=== PATIENT | male | born 1980 | race Caucasian/White ===

== ENCOUNTER 2016-12-01 13:28 | Emergency (ER) | payer SELFPAY ==
[2016-12-01 13:41] VITALS: BP 106/71
--- NOTE | 2016-12-01 14:11 | ER Document Report ---
ED Oral Problem - General Chief Complaint: Mouth Problem Stated Complaint: MOUTH PAIN TRAVEL OUTSIDE OF THE U.S. IN LAST 30 DAYS: No - HPI Patient complains to provider of: Toothache, Other - Aphthous ulcer Onset: Last week Onset: Gradual Quality of pain: Sharp Associated symptoms: Toothache, Other - Ulcer on the bottom of the tongue Worsened by: Cold Relieved by: Nothing Similar symptoms previously: Yes - Related Data Allergies/Adverse Reactions: No Known Allergies Allergy (Verified 12/01/16 13:38) Past Medical History - General Information source: Patient - Social History Smoking Status: Current Every Day Smoker Cigarette use (# per day): Yes - half pack a day Chew tobacco use (# tins/day): No Smoking Education Provided: Yes - less than 2 minutes Frequency of alcohol use: None Drug Abuse: None 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 Lives with: Friend Family History: CVA, DM, Malignancy Patient has suicidal ideation: No Patient has homicidal ideation: No - Past Medical History Cardiac Medical History: Reports: Hx Hypertension Pulmonary Medical History: Reports: None EENT Medical History: Reports: None Neurological Medical History: Reports: None Endocrine Medical History: Reports: None Renal/ Medical History: Reports: Hx Kidney Stones Malignancy Medical History: Reports None GI Medical History: Reports: None Musculoskeltal Medical History: Reports None Skin Medical History: Reports None Psychiatric Medical History: Reports: None Traumatic Medical History: Reports: None Infectious Medical History: Reports: None Past Surgical History: Reports: Hx Umbilical Hernia - Immunizations Hx Diphtheria, Pertussis, Tetanus Vaccination: Yes - 5 yrs Review of Systems - Review of Systems Constitutional: No symptoms reported EENT: Mouth swelling, Dental problem Cardiovascular: No symptoms reported Respiratory: No symptoms reported Gastrointestinal: No symptoms reported Genitourinary: Other - Days he has a kidney stone that is being treated Male Genitourinary: No symptoms reported Musculoskeletal: No symptoms reported Skin: No symptoms reported Hematologic/Lymphatic: No symptoms reported Neurological/Psychological: No symptoms reported Physical Exam - Vital signs Vitals: Temp Pulse Resp BP Pulse Ox 98.3 F 108 H 16 106/71 100 12/01/16 13:40 12/01/16 13:40 12/01/16 13:40 12/01/16 13:40 12/01/16 13:40 Interpretation: Normal - General General appearance: Appears well, Alert - HEENT Head: Normocephalic, Atraumatic Eyes: Normal Pupils: PERRL Ears: Normal External canal: Normal Tympanic membrane: Normal Sinus: Normal Nasal: Normal Mouth/Lips: Caries, Lesions - Abscess ulcer to the bottom of his tongue Mucous membranes: Normal Teeth diagram: 1 - Cavities 2 - Cavities 3 - Cavities 4 - Cavities 5 - aphthous ulcer under his tongue Pharynx: Normal Neck: Normal - Respiratory Respiratory status: No respiratory distress Chest status: Nontender Breath sounds: Normal Chest palpation: Normal - Cardiovascular Rhythm: Regular Heart sounds: Normal auscultation Murmur: No - Abdominal Inspection: Normal Distension: No distension Bowel sounds: Normal Tenderness: Nontender Organomegaly: No organomegaly - Back Back: Normal, Nontender - Extremities General upper extremity: Normal inspection, Nontender, Normal color, Normal ROM , Normal temperature General lower extremity: Normal inspection, Nontender, Normal color, Normal ROM , Normal temperature, Normal weight bearing. No: Kimi's sign - Neurological Neuro grossly intact: Yes Cognition: Normal Orientation: AAOx4 [place] Coma Scale Eye Opening: Spontaneous Ruth Coma Scale Verbal: Oriented [place] Coma Scale Motor: Obeys Commands [place] Coma Scale Total: 15 Speech: Normal Motor strength normal: LUE, RUE, LLE, RLE Sensory: Normal - Psychological Associated symptoms: Normal affect, Normal mood - Skin Skin Temperature: Warm Skin Moisture: Dry Skin Color: Normal Course - Vital Signs Vital signs: Temp Pulse Resp BP Pulse Ox 98.3 F 108 H 16 106/71 100 12/01/16 13:40 12/01/16 13:40 12/01/16 13:40 12/01/16 13:40 12/01/16 13:40 Discharge - Discharge Clinical Impression: Pain due to dental caries, Aphthous ulcer Condition: Stable Disposition: HOME, SELF-CARE Instructions: Dentist Additional Instructions: TOOTHACHE: Your pain is due to dental decay. The tooth must be repaired in order for you to feel better. You will, therefore, be referred to a dentist. We do not have dentists on the staff at [facility]. Severe swelling or drainage around a tooth usually means a dental abscess. This also requires evaluation and treatment by the dentist, but antibiotics may be prescribed while awaiting dental treatment. You should be rechecked immediately if you develop major swelling of the face, increasing pain, a lump in the jaw or gums, headache, difficulty swallowing, or fever. ORAL NARCOTIC MEDICATION: You have been given a prescription for pain control. This medication is a narcotic. It's best taken with food, as nausea can result if taken on an empty stomach. Don't operate machinery or drive within six hours of taking this medication. Do not combine this medicine with alcohol, or with any medication which can cause sedation (such as cold tablets or sleeping pills) unless you get permission from the physician. Narcotics tend to cause constipation. If possible, drink plenty of fluids and eat a diet high in fiber and fruits. Please be aware that prescription narcotics also have the potential for abuse. People become addicted to these medications because of the general sense of wellbeing that they induce. This feeling along with a significant reduction in tension, anxiety, and aggression provides a stimulating seductive quality to these drugs. Once your pain is under control, we encourage you to discard your unused narcotics. PENICILLIN V K: You have been given a prescription for Penicillin VK. Your physician has determined that this is the best antibiotic for your condition. Pen VK can be taken with meals, however more of the antibiotic gets into the bloodstream if it's taken on an empty stomach. Penicillin usually has no side effects. However, allergy to penicillins is common. If you have had an allergic reaction to any drug of the penicillin family, you should never take any other penicillin. Notify your doctor at once if you develop hives, itching, swelling, faintness, or shortness of breath. Mouth ulcers should be treated with the Magic mouthwash that I have prescribed you if this does not work then you need to go to the dentist for help with this mouth ulcer. FOLLOW-UP CARE: You have been referred for follow-up care to the dentists listed below. Call the dentists office for an appointment as you were instructed or within the next two days. If you experience worsening or a significant change in your symptoms, notify the physician immediately or return to the Emergency Department at any time for re-evaluation. [id number] [place] [address] [facility] [address] [facility] [address] [facility] [address] [email or web address] [address] [place] [address] Saturday- 8:00am to 5:00 pm Will see patients from other [facility]. Charges based on income and family size and accepts Medicare, Medicaid, and Insurances Will pull molars [facility] [id number] Hours of Operation 8:00 am - 4:30 pm weekdays The following dental offices accept Medicaid: [facility] [place] Dr. Monte Dr. Salas Dr. [place] Dr. Burk Al Garcia, [place], and Valentina oral surgery Dr. Churchill ([place]) Dr. Martinez ([place]) [facility] Drs. Dueñas ([place]) Dr. Simon ([place]) [facility] Dr. Crandall ([place]) Drs. Bar and ([place]) Medicaid Care Line Prescriptions: Hydrocodone/Acetaminophen [[place] 5-325 mg Tablet] 1 tab PO Q6HP PRN #10 tablet PRN Reason: Nystatin/Dexameth/Diphen [Magic Mouthwash ([facility] Formula) Susp] 5 ml PO QID #120 ml Penicillin V Potassium [Penicillin Vk 500 mg Tablet] 500 mg PO QID #28 tablet Forms: Return to Work, Smoking Cessation Education
== END 2016-12-01 14:25 | disposition home or self-care (01) ==
LOC: ER 13:28
DX: K02.9 Dental caries, unspecified (principal); K12.0 Recurrent oral aphthae; K08.89 Other specified disorders of teeth and supporting structures; N20.0 Calculus of kidney; I10 Essential (primary) hypertension; F17.210 Nicotine dependence, cigarettes, uncomplicated; Z71.6 Tobacco abuse counseling
CPT/HCPCS: 99282

== ENCOUNTER 2017-02-11 22:51 | Emergency (ER) | payer SELFPAY ==
[2017-02-12] MEDS ORDERED: BUPIVACAINE HCL 0.75% INJ/PF (7.5 MG/1 ML) 10 ML SDV INJ ONE (00:35)
[2017-02-12] MEDS ORDERED: PENICILLIN V POTASSIUM 500 MG TABLET PO ONE (00:35)
--- NOTE | 2017-02-12 00:37 | ER Document Report ---
HPI - HPI Patient complains to provider of: tooth pain Pain Level: 5 Context: Patient is a 36-year-old male who comes emergency department for chief complaint of dental pain, he states he broke a left back lower molar about 1 week ago, he states that 2 days ago it started to become very painful. He states he thinks he might of had something draining out of it but he is not sure. He denies a foul taste in his mouth, denies sore throat, denies neck pain , denies fever. Patient takes no daily medications. - CONSTITUTIONAL Constitutional: DENIES: Fever, Chills - EENT EENT: DENIES: Sore Throat, Ear Pain, Nasal Drainage-Clear, Nasal Drainage- Purulent, Congestion, Eye problems - NEURO Neurology: DENIES: Headache, Weakness, Vision blurred, Dizzinesss / Vertigo - CARDIOVASCULAR Cardiovascular: DENIES: Chest pain - RESPIRATORY Respiratory: DENIES: Trouble Breathing, Coughing - GASTROINTESTINAL Gastrointestinal: DENIES: Abdominal Pain, Nausea, Patient vomiting, Diarrhea, Constipation, Black / Bloody Stools - URINARY Urinary: DENIES: Dysuria, Urgency, Frequency - REPRODUCTIVE Reproductive: DENIES: :, Postmenopausal, Abnormal bleeding / discharge - MUSCULOSKELETAL Musculoskeletal: DENIES: Extremity pain, Back Pain, Neck Pain, Swelling - DERM Skin Color: Normal Skin Problems: None - NURSING COMMENTS Comment: Pt. reports having a broken tooth on the left lower jaw for 1 week, doesn't have dental insurance. Pt. last took ibuprofen on Saturday, pt. has used oragel also without relief. pt. reports having some drainage from the tooth on Saturday. Past Medical History - General Information source: Patient - Social History Smoking Status: Current Every Day Smoker Cigarette use (# per day): Yes - 1 ppd Chew tobacco use (# tins/day): No Frequency of alcohol use: None Drug Abuse: None Lives with: Family Family History: CVA, DM, Malignancy - Past Medical History Cardiac Medical History: Reports: Hx Hypertension Renal/ Medical History: Reports: Hx Kidney Stones. Denies: Hx Peritoneal Dialysis Past Surgical History: Reports: Hx Herniorrhaphy, Hx Umbilical Hernia - Immunizations Hx Diphtheria, Pertussis, Tetanus Vaccination: Yes - 5 yrs Vertical Provider Document - CONSTITUTIONAL General Appearance: WD/WN, Mild Distress - Patient appears to be in pain - INFECTION CONTROL TRAVEL OUTSIDE OF THE [place] IN LAST 30 DAYS: No - HEENT HEENT: Atraumatic, Normocephalic Mouth Diagram: 1 - Fractured tooth with mild surrounding erythema, no drainable abscess - RESPIRATORY Respiratory: Breath Sounds Normal, No Respiratory Distress O2 Sat by Pulse Oximetry: 99 - CARDIOVASCULAR Cardiovascular: Regular Rate, Regular Rhythm - GI/ABDOMEN Gastrointestinal: Abdomen Soft, Abdomen Non-Tender - NEURO Level of Consciousness: Awake, Alert, Appropriate Course - Re-evaluation Re-evalutation: Patient provided with dental block after he requested it, excellent results. Treating with antibiotics, given handout of local dental clinic referrals, discussed return precautions, patient states understanding and agreement. - Vital Signs Vital signs: Temp Pulse Resp BP Pulse Ox 97.7 F 77 16 137/89 H 99 02/11/17 23:30 02/11/17 23:30 02/11/17 23:30 02/11/17 23:30 02/11/17 23:30 Procedures - Additional Procedures Dental block Additional Procedures: Other - Left inferior alveolar dental block performed with 0.75% bupivacaine, 3 mL was injected after aspiration into the shelf posterior to the left posterior molar, excellent anesthesia provided, no significant bleeding, no complications Discharge - Discharge Clinical Impression: Pain, dental Condition: Stable Disposition: HOME, SELF-CARE Additional Instructions: Take the antibiotics as prescribed. Take pain medication if needed. Follow-up with the dental referral list to prevent this from continually happening. Return to emergency department for any concerning worsening symptoms including swelling of the face. Prescriptions: Hydrocodone/Acetaminophen [[place] 5-325 Tablet] 1 - 2 each PO Q4H PRN #12 tablet PRN Reason: Penicillin V Potassium [Penicillin Vk 500 mg Tablet] 500 mg PO BID #20 tablet Forms: Return to Work
[2017-02-12 01:57] VITALS: BP 128/82
== END 2017-02-12 01:56 | disposition home or self-care (01) ==
LOC: ER 22:51
PROC: 3E0T3BZ Introduction of Anesthetic Agent into Peripheral Nerves and Plexi, Percutaneous Approach (ICD-10-PCS; principal; 2017-02-11)
DX: K08.89 Other specified disorders of teeth and supporting structures (principal); F17.210 Nicotine dependence, cigarettes, uncomplicated; I10 Essential (primary) hypertension
CPT/HCPCS: 99282; 64400; J3490

== ENCOUNTER 2017-03-24 20:27 | Emergency (ER) | payer SELFPAY ==
--- NOTE | 2017-03-24 21:29 | ER Document Report ---
ED Oral Problem - General TRAVEL OUTSIDE OF THE [place] IN LAST 30 DAYS: No - General Chief Complaint: Toothache Stated Complaint: TOOTH PAIN Time Seen by Provider: 03/24/17 21:27 Notes: throat sore, same tooth, not taking motrin, patient complains of (SOFIAAMANDA) - Related Data Allergies/Adverse Reactions: No Known Allergies Allergy (Verified 03/24/17 20:48) Past Medical History - Social History Smoking Status: Current Every Day Smoker Chew tobacco use (# tins/day): No Frequency of alcohol use: None Drug Abuse: None Family History: CVA, DM, Malignancy - Past Medical History Cardiac Medical History: Reports: Hx Hypertension Renal/ Medical History: Reports: Hx Kidney Stones. Denies: Hx Peritoneal Dialysis Past Surgical History: Reports: Hx Herniorrhaphy, Hx Umbilical Hernia - Immunizations Hx Diphtheria, Pertussis, Tetanus Vaccination: Yes - 5 yrs Course - Re-evaluation Re-evalutation: 03/24/17 21:44 Patient presents emergency department for the third time in a month and a half with chronic chronic dental caries and chipped tooth. He states that the tooth chipped today however per previous documentation that particular tooth has been chipped before. He is been given 2 doses of pain medications here and cannot get continue to receive any of those until he follows up with a dental physician. Asked him if he is attempting to follow-up with dental physician he did not have any clear train of thought as to who he has sought out to try to help him with his dental care. He has no associated abscess vital signs are stable no intraoral lesions facial swelling difficulty breathing or any other concerns. Give him a dose of Motrin here prescription for ibuprofen to go home with and a list of dental providers in the area and discussed reasons for ED return sooner (MERYL ROSALES) - Vital Signs Vital signs: Temp Pulse Resp BP Pulse Ox 98.2 F 88 20 122/80 99 03/24/17 22:07 03/24/17 22:07 03/24/17 22:07 03/24/17 22:07 03/24/17 22:07 Discharge - Discharge Clinical Impression: chronic dental caries Condition: Stable Disposition: HOME, SELF-CARE Instructions: Penicillin V K ([facility]), [facility]ache ([facility]) Additional Instructions: You have been seen and evaluated in the emergency department with multiple dental caries. And multiple chipped teeth that require dental attention. We do not see where there is any abscess or infection. We are going to start on some antibiotics and have given you a dental sheet for follow-up with the dental physician. In addition to that follow primary care physician for any ongoing chronic related conditions with your teeth and return take Tylenol or Motrin. Return for increasing worsening or new symptoms Prescriptions: Ibuprofen [Motrin 600 Mg Tablet] 600 mg PO TID #12 tablet Penicillin V Potassium [Penicillin Vk 500 mg Tablet] 500 mg PO BID #20 tablet Scribe Attestation: 03/24/17 21:44 (MERYL ROSALES)
[2017-03-24] MEDS ORDERED: IBUPROFEN 600 MG TABLET PO ONE (21:45)
[2017-03-24] MEDS ORDERED: PENICILLIN V POTASSIUM 250 MG TABLET PO ONE (21:57)
[2017-03-24 22:07] VITALS: BP 122/80
== END 2017-03-24 22:09 | disposition home or self-care (01) ==
LOC: ER 20:27
DX: K02.9 Dental caries, unspecified (principal); F17.200 Nicotine dependence, unspecified, uncomplicated; I10 Essential (primary) hypertension; Z87.442 Personal history of urinary calculi
CPT/HCPCS: 99282

== ENCOUNTER 2017-08-14 23:31 | Emergency (ER) | payer SELFPAY ==
[2017-08-14 23:44] VITALS: BP 134/75
[2017-08-15] MEDS ORDERED: HYDROCODONE/ACETAMINOPHEN 5-325 MG 6 TAB/DSPK PO PRN (00:08)
[2017-08-15] MEDS ORDERED: CLINDAMYCIN HCL 150 MG CAPSULE PO ONE (00:08)
--- NOTE | 2017-08-15 00:10 | ER Document Report ---
ED General - General Chief Complaint: Toothache Stated Complaint: TOOTHACHE Time Seen by Provider: 08/14/17 23:56 Mode of Arrival: Ambulatory Information source: Patient Notes: Patient is a 37-year-old male comes emergency room with 2 complaints. His primary complaint is he has a right lower molar abscessed tooth that is causing pain and started approximately 3 days ago and is gotten worse. He also complains of having a fever has been bringing up chills that also started about the same day. 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 Patient also states that his temp is been up to 99 9 here in the hospital he has not taken anything for it. He states that his boss is getting him dental insurance before and is offered her to get his teeth fixed for him. Patient feels like the antibiotics will be the best help right now. He also has congestion runny nose cough. TRAVEL OUTSIDE OF THE [place] IN LAST 30 DAYS: No - HPI Patient complains to provider of: Upper respiratory infection/dental pain Onset: Other - 3 days Onset/Duration: Gradual, Constant Quality of pain: Achy, Sharp, Throbbing Severity: Moderate Pain Level: 3 Associated symptoms: Body/muscle aches, Chills, Nonproductive cough, Fever, Sinus pain/drainage, Other - Dental pain Exacerbated by: Walking, Other - Hot and cold Relieved by: Denies Similar symptoms previously: Yes Recently seen / treated by doctor: No - Related Data Allergies/Adverse Reactions: No Known Allergies Allergy (Verified 08/14/17 23:32) Past Medical History - General Information source: Patient - Social History Smoking Status: Current Every Day Smoker Cigarette use (# per day): Yes - Half-pack Chew tobacco use (# tins/day): No Smoking Education Provided: Yes Family History: Reviewed & Not Pertinent, CVA, DM, Malignancy - Past Medical History Cardiac Medical History: Reports: Hx Hypertension Renal/ Medical History: Reports: Hx Kidney Stones. Denies: Hx Peritoneal Dialysis Past Surgical History: Reports: Hx Herniorrhaphy, Hx Umbilical Hernia - Immunizations Hx Diphtheria, Pertussis, Tetanus Vaccination: Yes - 5 yrs Review of Systems - Review of Systems Constitutional: Chills, Fever EENT: Nose congestion, Sinus pressure, Dental problem Cardiovascular: No symptoms reported Respiratory: Cough Gastrointestinal: No symptoms reported Genitourinary: No symptoms reported Male Genitourinary: No symptoms reported Musculoskeletal: No symptoms reported Skin: No symptoms reported Hematologic/Lymphatic: No symptoms reported Neurological/Psychological: No symptoms reported -: Yes All other systems reviewed and negative Physical Exam - Vital signs Vitals: Temp Pulse Resp BP Pulse Ox 99.3 F 108 H 18 134/75 H 100 08/14/17 23:41 08/14/17 23:41 08/14/17 23:41 08/14/17 23:41 08/14/17 23:41 Interpretation: Hypertensive, Tachycardic - General General appearance: Alert, Other - Uncomfortable appearing - HEENT Head: Atraumatic Sinus: Other - Examination had an upper airway showed nasal mucosa to be moderately erythematous and edematous with some yellowish rhinorrhea noted. Patient also has bilateral nasal congestion with notable frontal maxillary sinus tenderness to palpation. Bilateral TMs bulging with air but no fluid levels. Posterior pharynx shows moderate amount of erythema no exudate uvula is midline with erythema no exudate patient's right second from the back bottom molar and has history of fillings and previously appears to be moderate amount of decay possibly into the nerve root. There is appears to be some exudate on the tooth gumline on the lateral side of the tooth itself. Patient has moderate amount of tenderness to percussion of the tooth. Nasal: Purulent discharge Mouth/Lips: Normal Mucous membranes: Normal, Moist Pharynx: Other - See description above Neck: Normal - Respiratory Respiratory status: No respiratory distress Chest status: Nontender Breath sounds: Normal. No: Decreased air movement, Nonproductive cough, Productive cough, Rales, Rhonchi, Stridor, Wheezing, Other - Cardiovascular Rhythm: Tachycardia - Abdominal Inspection: Normal - Neurological Neuro grossly intact: Yes Cognition: Normal Orientation: AAOx4 Ruth Coma Scale Eye Opening: Spontaneous Ruth Coma Scale Verbal: Oriented Ruth Coma Scale Motor: Obeys Commands Ruth Coma Scale Total: 15 Speech: Normal - Skin Skin Temperature: Warm Skin Moisture: Dry Skin Color: Normal, [place] Course - Vital Signs Vital signs: Temp Pulse Resp BP Pulse Ox 99.3 F 108 H 18 134/75 H 100 08/14/17 23:41 08/14/17 23:41 08/14/17 23:41 08/14/17 23:41 08/14/17 23:41 - Transfer of Care Notes: 08/15/17 00:13 At this time on patient's physical examination I think probably he has 2 major things go out one is he has a dental abscess on that right back lower second molar and he also has a upper respiratory infection most likely a sinus condition secondary to the dental pain as well and possibly even a viral presentation of an upper respiratory infection. I have explained to patient that we cannot fix this problem here in the emergency room it is a dental problem although I am given him clindamycin which should cover the sinuses and dental. I am put him on Sudafed to help the congestion and runny nose and I am given a little pain medication secondary to the dental abscess. He does have some mild swelling that I forgot to mention on the external right mandibular area. Discharge - Discharge Clinical Impression: Dental abscess Sinusitis Qualifiers: Sinusitis location: maxillary Chronicity: acute Recurrence: non-recurrent Qualified Code(s): J01.00 - Acute maxillary sinusitis, unspecified Condition: Good Disposition: HOME, SELF-CARE Instructions: Abscess ([facility]), Clindamycin ([facility]), Oral Narcotic Medication ([facility]) , Toothache ([facility]), Sinusitis ([facility]) Additional Instructions: As of informed you we cannot fix the dental problem here in ER however you make an continue to talk to your employer about getting the dental insurance. The dental pain could be cords causing the sinus congestion and runny nose with the antibiotic should cover both of those. Tylenol alternating with Motrin as well for any fever aches or pains. Take all of the antibiotics to finish. As I have informed you the antibiotic clindamycin is rather expensive you do not have a drug plan. I have informed you and had you put in the application of [employer] show you how to use it and it is highly advantageous if you do. Should you have any concerns or problems return to ER for recheck. Prescriptions: Clindamycin HCl 300 mg PO Q6 #40 capsule Hydrocodone/Acetaminophen [[place] 5-325 Tablet] 1 each PO ASDIR PRN #12 tablet PRN Reason: Pseudoephedrine HCl [Sudafed 12-Hour] 120 mg PO BID #20 tablet.er Forms: Elevated Blood Pressure, Smoking Cessation Education, Return to Work
== END 2017-08-15 00:30 | disposition home or self-care (01) ==
LOC: ER 23:31
DX: K04.7 Periapical abscess without sinus (principal); J01.00 Acute maxillary sinusitis, unspecified; K08.89 Other specified disorders of teeth and supporting structures; R05 Cough; M79.1 Myalgia; J34.89 Other specified disorders of nose and nasal sinuses; R09.81 Nasal congestion; I10 Essential (primary) hypertension; F17.210 Nicotine dependence, cigarettes, uncomplicated; Z71.6 Tobacco abuse counseling
CPT/HCPCS: 99282

== ENCOUNTER 2017-08-26 18:02 | Emergency (ER) | payer SELFPAY ==
[2017-08-26] MEDS ORDERED: TETRACAINE HCL 0.5% OPH SOLN 2 ML OD ONE (18:46)
[2017-08-26] MEDS ORDERED: ERYTHROMYCIN 0.5% OPH OINTMENT 3.5 GM (ER DISP) OD PRN (18:56)
--- NOTE | 2017-08-26 19:01 | ER Document Report ---
HPI - HPI Patient complains to provider of: right eye irritation Onset: Other - 3 days Onset/Duration: Persistent Quality of pain: Achy Pain Level: 5 Context: Patient states that he was scraping pain 3 days ago and is concerned that he might of gotten some debris in his eye. Patient states that he has washed his eye out with water and that his girlfriend has repeatedly used a Q-tip to rub the lower part of his eye. Patient complains of lower eye swelling, tearing in redness. Patient denies any change in vision. States he was wearing sunglasses while performing his job. Patient denies any contact lens use. Patient has been using Visine without improvement of his symptoms Associated Symptoms: Other - Right eye irritation, tearing Exacerbated by: Denies Relieved by: Denies Similar symptoms previously: No Recently seen / treated by doctor: No - ROS ROS below otherwise negative: Yes Systems Reviewed and Negative: Yes All other systems reviewed and negative - EENT EENT: REPORTS: Eye problems - debris in right eye - NEURO Neurology: REPORTS: Headache - r/t right eye, Vision blurred - right eye - RESPIRATORY Respiratory: DENIES: Coughing - GASTROINTESTINAL Gastrointestinal: DENIES: Nausea, Patient vomiting - REPRODUCTIVE Reproductive: DENIES: : - MUSCULOSKELETAL Musculoskeletal: DENIES: Neck Pain - DERM Skin Color: Normal Skin Problems: None Past Medical History - General Information source: Patient - Social History Smoking Status: Current Every Day Smoker Chew tobacco use (# tins/day): No Smoking Education Provided: Yes Frequency of alcohol use: None Drug Abuse: None 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 Denies: Hx Peritoneal Dialysis Past Surgical History: Reports: Hx Herniorrhaphy, Hx Umbilical Hernia - Immunizations Hx Diphtheria, Pertussis, Tetanus Vaccination: Yes - 5 yrs Vertical Provider Document - CONSTITUTIONAL Agree With Documented VS: Yes Exam Limitations: No Limitations General Appearance: WD/WN, No Apparent Distress - INFECTION CONTROL TRAVEL OUTSIDE OF THE [place] IN LAST 30 DAYS: No - HEENT HEENT: Atraumatic, Normocephalic, PERRLA Notes: chemosis to inferior aspect of sclera of right eye, mild injection of sclera of right eye, no corneal abrasion, ulcer or foreign body. No fluorescein uptake. Extraocular movements intact, Perrl - NECK Neck: Normal Inspection - RESPIRATORY Respiratory: Breath Sounds Normal, No Respiratory Distress O2 Sat by Pulse Oximetry: 100 - CARDIOVASCULAR Cardiovascular: Regular Rate, Regular Rhythm - MUSCULOSKELETAL/EXTREMETIES Musculoskeletal/Extremeties: MAEW - NEURO Level of Consciousness: Awake, Alert, Appropriate Motor/Sensory: No Motor Deficit - DERM Integumentary: Warm, Dry, No Rash Course - Vital Signs Vital signs: Temp Pulse Resp BP Pulse Ox 97.9 F 100 18 129/78 H 100 08/26/17 18:34 08/26/17 18:34 08/26/17 18:34 08/26/17 18:34 08/26/17 18:34 Discharge - Discharge Clinical Impression: Chemosis of right conjunctiva Conjunctivitis Qualifiers: Conjunctivitis type: unspecified Laterality: right Qualified Code(s): H10.9 - Unspecified conjunctivitis Condition: Stable Disposition: HOME, SELF-CARE Instructions: Antibiotic Therapy ([facility]), Chemosis ([facility]), Conjunctivitis ([facility]) Additional Instructions: Return immediately for any new or worsening symptoms Followup with your primary care provider, call tomorrow to make a followup appointment Instill erythromycin ophthalmic ointment 1 inch ribbon to right eye 4 times a day for the next 5 days Prescriptions: Olopatadine HCl [Pataday] 1 drop RT_EYE DAILY #2.5 ml Forms: Smoking Cessation Education Referrals: [facility] [Provider Group] - Follow up as needed OFFICE [facility] [Provider Group] - Follow up tomorrow
[2017-08-26 19:20] VITALS: BP 122/83
== END 2017-08-26 19:21 | disposition home or self-care (01) ==
LOC: ER 18:02
DX: H11.421 Conjunctival edema, right eye (principal); H10.9 Unspecified conjunctivitis; R51 Headache; F17.200 Nicotine dependence, unspecified, uncomplicated; Z87.442 Personal history of urinary calculi
CPT/HCPCS: 99283

== ENCOUNTER 2017-08-29 11:08 | Emergency (ER) | payer SELFPAY ==
--- NOTE | 2017-08-29 12:14 | ER Document Report ---
ED Eye Complaint - General Chief Complaint: Drainage from Eye Stated Complaint: EYE PAIN Time Seen by Provider: 08/29/17 11:39 Mode of Arrival: Ambulatory Information source: Patient, Relative Notes: Patient is a 37-year-old male who returns emergency room with complaint that his right eye is getting worse in his left eye is starting to get the same problem. Patient was seen here on believe the for complaint of the eye possibility of a foreign body although patient had stated he was wearing his sunglasses. It was stated in the chart that he might of gotten a to piece of paint in there but patient states that his friend also has the same kind of a problem and he may have gotten it from him. Patient states he has been using erythromycin ointment was not able to afford the antihistamine Padiday patient denies any other problems. He states that the eyes is getting worse more blurry vision it is bloodshot when he wakes up he is crusted over as well. The left eye is also starting to maintain some of the redness but is not as painful. TRAVEL OUTSIDE OF THE [place] IN LAST 30 DAYS: No - HPI Patient complains to provider of: Right eye pain Onset: Other - 3 days Occurred at: Other - Unknown Quality of pain: Burning, Sharp Severity: Severe Pain Level: 4 Safety glasses worn: No Contact lenses worn: No Associated symptoms: Burning, Photophobia, Redness, Matting, Eyelid swelling, Blurred vision - Related Data Allergies/Adverse Reactions: No Known Allergies Allergy (Verified 08/14/17 23:32) Past Medical History - General Information source: Patient, Relative - Social History Smoking Status: Current Every Day Smoker Cigarette use (# per day): Yes - Pack a day Chew tobacco use (# tins/day): No Frequency of alcohol use: None Drug Abuse: None Lives with: Family Family History: Reviewed & Not Pertinent, CVA, DM, Malignancy Patient has suicidal ideation: No Patient has homicidal ideation: No - Past Medical History Cardiac Medical History: Reports: Hx Hypertension Renal/ Medical History: Reports: Hx Kidney Stones. Denies: Hx Peritoneal Dialysis Past Surgical History: Reports: Hx Herniorrhaphy, Hx Umbilical Hernia - Immunizations Hx Diphtheria, Pertussis, Tetanus Vaccination: Yes - 5 yrs Review of Systems - Review of Systems Constitutional: No symptoms reported EENT: Eye pain, Eye discharge, Blurred vision, Tearing. denies: No symptoms reported, See HPI, Double vision, Ear pain, Ear discharge, Nose pain, Nose congestion, Nose discharge, Sinus pressure, Sinus discharge, Throat pain, Difficulty swallowing, Throat swelling, Mouth pain, Mouth swelling, Dental problem, Vertigo, Other Cardiovascular: No symptoms reported Respiratory: No symptoms reported Gastrointestinal: No symptoms reported Genitourinary: No symptoms reported Male Genitourinary: No symptoms reported Musculoskeletal: No symptoms reported Skin: No symptoms reported Hematologic/Lymphatic: No symptoms reported Neurological/Psychological: No symptoms reported -: Yes All other systems reviewed and negative Physical Exam - Vital signs Vitals: Temp Pulse Resp BP Pulse Ox 98.8 F 88 18 117/86 H 100 08/29/17 11:14 08/29/17 11:14 08/29/17 11:14 08/29/17 11:14 08/29/17 11:14 Interpretation: Normal - General General appearance: Alert, Other - Very uncomfortable appearing - HEENT Head: Normocephalic, Atraumatic Eyes: Tears, Other - Examination of patient's without any magnification shows just under tangential light that there is some waviness at the top portion of the cornea. Kind of looks like there is a ulceration or multiple ulcerations. Fluorescein stain also shows uptake in the superior portion of the cornea in large amounts. The sclera is very injected patient is continually tearing in the right eye. Examination of the left eye shows redness Antelope but the cornea appears intact at this time. Conjunctiva: Injected, Other Cornea: Corneal ulcer, Flourescein stain uptake Extraocular movements intact: Yes Eyelashes: Matted Pupils: PERRL Visual acuity- Right eye: 20/100 Visual acuity- Left eye: 20/40 Visual acuity- Both eyes: 20/70 Corrective lenses worn: No Ears: Normal External canal: Normal Tympanic membrane: Normal Sinus: Normal Nasal: Normal Mouth/Lips: Normal Mucous membranes: Normal Pharynx: Normal Neck: Normal - Respiratory Respiratory status: No respiratory distress Chest status: Nontender Breath sounds: Normal. No: Decreased air movement, Nonproductive cough, Productive cough, Rales, Rhonchi, Stridor, Wheezing, Other - Cardiovascular Rhythm: Regular Heart sounds: Normal auscultation Murmur: No - Neurological Neuro grossly intact: Yes Cognition: Normal Orientation: AAOx4 [place] Coma Scale Eye Opening: Spontaneous Ruth Coma Scale Verbal: Oriented Ruth Coma Scale Motor: Obeys Commands [place] Coma Scale Total: 15 Speech: Normal Course - Vital Signs Vital signs: Temp Pulse Resp BP Pulse Ox 98.8 F 88 18 117/86 H 100 08/29/17 11:14 08/29/17 11:14 08/29/17 11:14 08/29/17 11:14 08/29/17 11:14 - Transfer of Care Notes: 08/29/17 12:39 After examination and I could not get the slit-lamp to work I did talk to Dr. Soriano about coming or tingling the patient which he did. He did a exam the best he could without the slit lamp with tangential lighting does appear that there is also some epithelial erosion in the superior portion of the cornea with severe iritis of the right eye from causes unknown. He suggested we contact the home health caregiver director of quality control who is Dr. Ray to see if he could possibly recommend a treatment option or if he could possibly see the patient. Dr. Ray did call me back within just a few minutes explained to him the same as we have discussed and he is willing to see patient in his office today at 3 PM. We will the patient a map to the location and have him see him at 3 PM. I have reinforced dramatically to patient that if this is his one chance to get this taken care of that he must be there and if he has to wait he must wait. He seems to stress he will currently we are not going to add any other regime to the eye right now we will discharge patient to Dr. Ray's office. Discharge - Discharge Clinical Impression: Corneal ulcer of right eye, Iritis of right eye Condition: Good Disposition: Tertiary-Other Instructions: Corneal Ulceration ([facility]), Iritis ([facility]) Additional Instructions: We have discussed your case with Dr. Ray he is willing to see you in his office today at 3 PM. Is 1 of the few home health caregiver who is on-call for the emergency room. He will see you in his office as stated at 3 PM highly important that he keep this appointment. Once he is seen you I would suggest you follow his guidance in treating this condition. After you have seen him should you have any concerns or problems return to ER for recheck. Forms: Smoking Cessation Education Referrals: AUBREY RAY, DO [ACTIVE STAFF] - Follow up as needed
[2017-08-29 12:57] VITALS: BP 104/82
== END 2017-08-29 12:59 | disposition home or self-care (01) ==
LOC: ER 11:08
DX: H16.001 Unspecified corneal ulcer, right eye (principal); H20.9 Unspecified iridocyclitis; H57.11 Ocular pain, right eye; F17.210 Nicotine dependence, cigarettes, uncomplicated
CPT/HCPCS: 99282

== ENCOUNTER 2018-06-26 16:55 | Emergency (ER) | payer SELFPAY ==
[2018-06-26 17:14] VITALS: BP 132/80
--- NOTE | 2018-06-26 17:31 | ER Document Report ---
ED Respiratory Problem - General Chief Complaint: Cold Symptoms Stated Complaint: FEVER, COUGH,TROUBLE BREATHING Time Seen by Provider: 06/26/18 17:25 Mode of Arrival: Ambulatory Information source: Patient Notes: Patient is a 38-year-old male comes emergency room complaining of having upper respiratory symptoms for the past 5 days. Patient states that he has had fever over the first 2 days and has had a productive green cough over the next couple of days. He is also been congested with runny nose. Also has had a sore throat. Also has some nausea and vomiting and some diarrhea appear. Patient states that he is gotten better in the last couple 3 days I would he want to be checked out to make sure that everything is okay and he still feels like these upper respiratory may need treatment. Also states he had fever the first 2 days. TRAVEL OUTSIDE OF THE [place] IN LAST 30 DAYS: No - HPI Patient complains to provider of: Cough, Hurts to breath, Short of breath Onset: Other - 5 days Duration: Better Quality of pain: Achy Severity: Mild Pain Level: 1 Short of Breath: Moderate Chest pain/discomfort: Constant Cough: Productive Sputum amount: Small Sputum color: Green, Yellow Sputum consistency: Thick Similar symptoms previously: Yes Recently seen / treated by doctor: No - Related Data Allergies/Adverse Reactions: No Known Allergies Allergy (Verified 08/14/17 23:32) Past Medical History - General Information source: Patient - Social History Smoking Status: Current Every Day Smoker Cigarette use (# per day): Yes - Half-pack a day Chew tobacco use (# tins/day): No Smoking Education Provided: Yes Frequency of alcohol use: Rare Drug Abuse: None Lives with: Family Family History: Reviewed & Not Pertinent, CVA, DM, Malignancy - Past Medical History Cardiac Medical History: Reports: Hx Hypertension Renal/ Medical History: Reports: Hx Kidney Stones. Denies: Hx Peritoneal Dialysis Past Surgical History: Reports: Hx Herniorrhaphy, Hx Umbilical Hernia - Immunizations Hx Diphtheria, Pertussis, Tetanus Vaccination: Yes - 5 yrs Review of Systems - Review of Systems Constitutional: Fever EENT: Nose congestion, Sinus pressure, Sinus discharge Cardiovascular: No symptoms reported Respiratory: See HPI, Cough, Hurts to breathe, Short of breath, Sputum, Wheezing Gastrointestinal: Diarrhea, Nausea, Vomiting Genitourinary: No symptoms reported Male Genitourinary: No symptoms reported Musculoskeletal: No symptoms reported Skin: No symptoms reported Hematologic/Lymphatic: No symptoms reported Neurological/Psychological: No symptoms reported -: Yes All other systems reviewed and negative Physical Exam - Vital signs Vitals: Temp Pulse Resp BP Pulse Ox 98.4 F 99 16 132/80 H 100 06/26/18 17:13 06/26/18 17:13 06/26/18 17:13 06/26/18 17:13 06/26/18 17:13 Interpretation: Hypertensive - Notes Notes: PHYSICAL EXAMINATION: GENERAL: Well-appearing, well-nourished and in no acute distress. HEAD: Atraumatic, normocephalic. EYES: Pupils equal round and reactive to light, extraocular movements intact, sclera anicteric, conjunctiva are normal. ENT: Examination head and upper airway showed nasal mucosa to be moderately erythematous and edematous with bilateral nares congestion. Patient does not have any frontal or maxillary sinus tenderness to palpation or percussion. Bilateral TMs are bulging with no fluid levels. Posterior pharynx shows moderate amount of erythema with no encroachment on the uvula. Uvula is midline with moderate erythema and no exudate. There is postnasal drainage in the pharynx. It is slightly yellow-green in color. NECK: Normal range of motion, supple without lymphadenopathy LUNGS: Auscultation patient's lung ramirez show he has bilateral breath sounds breath sounds are decreased throughout with a notable inspiratory and end expiratory wheeze on the right side. There is no rhonchi or rales noted at this time. HEART: Regular rate and rhythm without murmurs ABDOMEN: Soft, nontender, nondistended abdomen. No guarding, no rebound. No masses appreciated. Musculoskeletal: Normal range of motion, no pitting or edema. No cyanosis. NEUROLOGICAL: Cranial nerves grossly intact. Normal speech, normal gait. Normal sensory, motor exams PSYCH: Normal mood, normal affect. SKIN: Warm, Dry, normal turgor, no rashes or lesions noted. Course - Re-evaluation Re-evalutation: 06/26/18 17:35 Patient states that he is actually feeling better than he has been for the past few days. He is here because he needs evaluation and also returned to work. Patient has stated that he does not want any extensive workup even though I offered since he was given me a history of nausea vomiting and diarrhea for several days and that we will keep food down. But he had his rejected any kind of a workup is requesting that I treat him for the wheeze. Given that he does sound tight I am going to put him on a steroid taper and because of the nasty pharynx I am going to put him on the Zithromax. - Vital Signs Vital signs: Temp Pulse Resp BP Pulse Ox 98.4 F 99 16 132/80 H 100 06/26/18 17:13 06/26/18 17:13 06/26/18 17:13 06/26/18 17:13 06/26/18 17:13 Discharge - Discharge Clinical Impression: Acute asthmatic bronchitis Condition: Stable Disposition: HOME, SELF-CARE Instructions: Bronchitis With Bronchospasm (Wheezing) ([facility]), Tonsillitis ([facility]) Additional Instructions: Home and rest the rest of the night. Take medication as prescribed. This should help you breathe a little easier and take care of the sore throat portion. Should you have any concerns or problems return to ER for recheck. Can alternate with Motrin for any body aches and fever. Prescriptions: Azithromycin [Zithromax 250 mg Tablet] 250 mg PO ASDIR PRN #6 tablet PRN Reason: Prednisone [Sterapred Ds] 10 mg PO ASDIR PRN 6 Days #1 tab.ds.pk PRN Reason: Forms: Smoking Cessation Education, Return to Work Referrals: [facility] [NO LOCAL MD] - Follow up as needed
== END 2018-06-26 17:44 | disposition home or self-care (01) ==
LOC: ER 16:55
DX: J45.901 Unspecified asthma with (acute) exacerbation (principal); R50.9 Fever, unspecified; R05 Cough; R06.02 Shortness of breath; I10 Essential (primary) hypertension; F17.210 Nicotine dependence, cigarettes, uncomplicated; Z87.442 Personal history of urinary calculi
CPT/HCPCS: 99283

== ENCOUNTER 2018-09-28 20:30 | Emergency (ER) | payer SELFPAY ==
[2018-09-28 21:00] VITALS: BP 140/97
--- NOTE | 2018-09-28 23:11 | RADIOLOGY REPORT (SQ) ---
EXAM DESCRIPTION: XR CHEST 1 VIEW COMPLETED DATE/TME: 09/28/2018 22:32 CLINICAL HISTORY: 38 years, Male, cough COMPARISON: None. NUMBER OF VIEWS: 2 TECHNIQUE: 2 AP views of the chest LIMITATIONS: None. FINDINGS: The heart size is normal. Osteopenia. Lungs are clear. Underlying hyperinflation. No pneumothorax IMPRESSION: No acute cardiopulmonary process. Underlying hyperinflation. copyright 2010 [employer]- All Rights Reserved
--- NOTE | 2018-09-28 23:31 | ER Document Report ---
ED General - General Chief Complaint: Flu Symptoms Stated Complaint: FLU SYMPTOMS Time Seen by Provider: 09/28/18 22:32 Notes: Patient is a 38-year-old male without chronic medical problems presents complaining of 2 days of cough, sore throat, body aches and subjective fever. Patient states that he feels quite unwell. He has been taking ibuprofen and Tylenol with moderate improvement of symptoms. Nothing worsens symptoms. Multiple sick contacts at work with confirmed flu. Patient is also concerned that he has the flu. He has not seen his general physician regarding today's concerns. Did not receive the influenza vaccine this year. TRAVEL OUTSIDE OF THE [place] IN LAST 30 DAYS: No - HPI Onset: Yesterday Onset/Duration: Gradual Quality of pain: Achy Severity: Moderate Pain Level: 3 Associated symptoms: Body/muscle aches, Chills, Nonproductive cough Exacerbated by: Denies Relieved by: Denies Similar symptoms previously: No Recently seen / treated by doctor: No - Related Data Allergies/Adverse Reactions: No Known Allergies Allergy (Verified 08/14/17 23:32) Past Medical History - General Information source: Patient - Social History Smoking Status: Current Every Day Smoker Frequency of alcohol use: None Drug Abuse: None Lives with: Alone Family History: Reviewed & Not Pertinent, CVA, DM, Malignancy Patient has suicidal ideation: No Patient has homicidal ideation: No - Past Medical History Cardiac Medical History: Reports: Hx Hypertension Renal/ Medical History: Reports: Hx Kidney Stones. Denies: Hx Peritoneal Dialysis Past Surgical History: Reports: Hx Herniorrhaphy, Hx Umbilical Hernia - Immunizations Hx Diphtheria, Pertussis, Tetanus Vaccination: Yes - 5 yrs Review of Systems - Review of Systems Notes: Constitutional: Positive for fever. HENT: Positive for sore throat. Eyes: Negative for visual changes. Cardiovascular: Negative for chest pain. Respiratory: Positive for cough Gastrointestinal: Negative for abdominal pain, positive for nausea Genitourinary: Negative for dysuria. Musculoskeletal: Negative for back pain. Skin: Negative for rash. Neurological: Negative for headaches, weakness or numbness. 10 point ROS negative except as marked above and in HPI. Physical Exam - Vital signs Vitals: Temp Pulse Resp BP Pulse Ox 98.3 F 115 H 16 140/97 H 97 09/28/18 20:55 09/28/18 20:55 09/28/18 20:55 09/28/18 20:55 09/28/18 20:55 Interpretation: Hypertensive, Tachycardic Notes: PHYSICAL EXAMINATION: GENERAL: Well-appearing, well-nourished and in no acute distress. HEAD: Atraumatic, normocephalic. EYES: Pupils equal round and reactive to light, extraocular movements intact, sclera anicteric, conjunctiva are normal. ENT: nares patent, oropharynx clear without exudates. Moderately dry mucous membranes. NECK: Normal range of motion, supple without lymphadenopathy LUNGS: Breath sounds clear to auscultation bilaterally and equal. No wheezes rales or rhonchi. HEART: Regular rate and rhythm without murmurs ABDOMEN: Soft, nontender, normoactive bowel sounds. No guarding, no rebound. No masses appreciated. EXTREMITIES: Normal range of motion, no pitting or edema. No cyanosis. NEUROLOGICAL: No focal neurological deficits. Moves all extremities spontaneously and on command. PSYCH: Normal mood, normal affect. SKIN: Warm, Dry, normal turgor, no rashes or lesions noted. Course - Re-evaluation Re-evalutation: 09/28/18 23:28 Patient presents with cough, vomiting, diarrhea, and fever at home consistent with a diagnosis of influenza. Influenza testing is positive. Patient is overall well in appearance, in no acute distress. Lung sounds clear. Able to tolerate oral intake without difficulty here in the emergency department. After risks and benefits conversation with the patient regarding the use of Tamiflu, they have elected to use supportive care without Tamiflu based on concerns about lack of efficacy as well as the side effect profile. At this time will discharge with return precautions and follow-up recommendations. Verbal discharge instructions given a the bedside and opportunity for questions given. Medication warnings reviewed. Patient is in agreement with this plan and has verbalized understanding of return precautions and the need for primary care follow-up in the next 24-72 hours. - Vital Signs Vital signs: Temp Pulse Resp BP Pulse Ox 98.3 F 115 H 16 140/97 H 97 09/28/18 20:55 09/28/18 20:55 09/28/18 20:55 09/28/18 20:55 09/28/18 20:55 - Diagnostic Test Radiology reviewed: Image reviewed, Reports reviewed Radiology results interpreted by me: 09/28/18 23:29 Chest x-ray: No acute infiltrate or pneumothorax Discharge - Discharge Clinical Impression: Cough, Body aches, Influenza Fever Qualifiers: Fever type: unspecified Qualified Code(s): R50.9 - Fever, unspecified Condition: Good Disposition: HOME, SELF-CARE Additional Instructions: You have influenza. There is no treatment that is effective for this diagnosis other than supportive care at home. This includes drinking plenty of fluids, using Tylenol or ibuprofen as needed for fever and discomfort, and Zofran as needed for nausea and vomiting. Please follow closely with you primary care physician the next 1-2 days regarding this diagnosis. Return to the emergency department immediately if you began to have persistent vomiting prevents you from being able to keep fluids down for more than 12 hours, you pass out, you began having difficulty breathing, you become confused, or you have any other symptoms that are worrisome to you.
[2018-09-28 23:54] LABS: A TYPE INFLUENZA AG POSITIVE (NEGATIVE); B INFLUENZA AG NEGATIVE (NEGATIVE)
[2018-09-29] MEDS ORDERED: ONDANSETRON ODT 4 MG TAB (6 TAB/ER DISP) PO PRN (00:09)
== END 2018-09-29 00:14 | disposition home or self-care (01) ==
LOC: ER 20:30
DX: J11.1 Influenza due to unidentified influenza virus with other respiratory manifestations (principal); R05 Cough; M79.10 Myalgia, unspecified site; R50.9 Fever, unspecified; F17.200 Nicotine dependence, unspecified, uncomplicated; I10 Essential (primary) hypertension
CPT/HCPCS: 71045; 87804; 99283

== ENCOUNTER 2018-10-06 03:31 | Emergency (ER) | payer SELFPAY ==
--- NOTE | 2018-10-06 04:25 | ER Document Report ---
ED General - General Chief Complaint: Shortness Of Breath Stated Complaint: POSSIBLE POISONING Time Seen by Provider: 10/06/18 04:02 Notes: Patient is a 38-year-old male who presents emergency department with a chief complaint of flulike symptoms and pneumonia. He was diagnosed with pneumonia and flu on the 28 of September. He started taking his azithromycin 2 days ago, and is taking the right medication for his pneumonia. His main concern for this visit is that his girlfriend thinks that the patient's roommate is poisoning him with arsenic poisoning. He states that he is not getting any better and feels like he is getting worse. He does have some nausea and vomiting, states he can keep down fluids if he drinks slowly. He does admit to not drinking as much fluids as he could. He denies any fever at home. TRAVEL OUTSIDE OF THE [place] IN LAST 30 DAYS: No - Related Data Allergies/Adverse Reactions: No Known Allergies Allergy (Verified 08/14/17 23:32) Past Medical History - Social History Smoking Status: Current Every Day Smoker Family History: Reviewed & Not Pertinent, CVA, DM, Malignancy - Past Medical History Cardiac Medical History: Reports: Hx Hypertension Renal/ Medical History: Reports: Hx Kidney Stones. Denies: Hx Peritoneal Dialysis Past Surgical History: Reports: Hx Herniorrhaphy, Hx Umbilical Hernia - Immunizations Hx Diphtheria, Pertussis, Tetanus Vaccination: Yes - 5 yrs Review of Systems - Review of Systems Notes: REVIEW OF SYSTEMS: CONSTITUTIONAL : Denies recent illness. Denies recent unintentional weight loss. Denies fever, chills, or sweats. EENT: Denies eye, ear, throat, or mouth pain, discharge, or symptoms. Denies nasal or sinus congestion. CARDIOVASCULAR: Denies chest pain. RESPIRATORY: See HPI. GASTROINTESTINAL: See HPI. GENITOURINARY: Denies difficulty urinating, burning, blood in urine, urgency or frequency. MUSCULOSKELETAL: Denies neck and back pain. Denies joint pain or swelling. SKIN: See HPI. HEMATOLOGIC : Denies easy bruising or bleeding. LYMPHATIC: Denies swollen, painful, enlarged glands. NEUROLOGICAL: Denies no numbness or tingling denies weakness. Denies headache. Denies altered mental status. Denies alteration in speech. PSYCHIATRIC: Denies stress, anxiety, alteration in sleep patterns, or depression. All other systems reviewed and negative. Physical Exam - Vital signs Vitals: Temp Pulse Resp BP Pulse Ox 100 F 120 H 20 135/76 H 97 10/06/18 03:41 10/06/18 03:41 10/06/18 03:41 10/06/18 03:41 10/06/18 03:41 - Notes Notes: PHYSICAL EXAMINATION: GENERAL: Appears ill, dehydrated, no acute distress. HEAD: Normocephalic, atraumatic. EYES: PERRL, conjunctiva normal, all extraocular movements intact, sclera nonicteric ENT: Moist mucous membranes. Rhinorrhea noted. NECK: Supple, no noticeable swelling, redness, rash. Normal range of motion. LUNGS: Equal breath sounds bilaterally and clear to auscultation. No wheezes rales or rhonchi. CARDIOVASCULAR: S1-S2, regular rate, regular rhythm. Radial pulses 2+, normal. ABDOMEN: Normoactive bowel sounds. Soft, nontender, no guarding, no rebound tenderness, and no masses palpated. EXTREMITIES: Normal strength and range of motion, no pitting or edema. No cyanosis. NEUROLOGICAL: Moves all extremities upon command. Strength 5/5 in all extremities. PSYCH: Normal mood, normal affect. SKIN: Warm, dry. No lesions, ulcerations noted. Normal skin turgor. Rash noted to bilateral hands. Course - Re-evaluation Re-evalutation: 10/06/18 04:29 I have discussed this case with Dr. Cheema. He recommends to send the lab for arsenic poisoning since there is a concern for it, and then called the patient with the results since it is a send out test. I discussed this with the patient. He is in agreement with this plan. He will be given Zofran here in the emergency department and sent home with Zofran for home. Verbal discharge instructions were given to the patient. They verbalized understanding. They are stable for discharge. 10/06/18 04:48 The patient's lab draw was attempted by the primary RN and myself. The patient is very dehydrated and states that he has not had much to drink the past few days. He states that he does not not want to be tested for arsenic poisoning anymore. He states that he would much rather go home and be watched by his girlfriend. I have advised them that once he gets rehydrated, he can be tested for arsenic poisoning by a primary care provider. His said that she will try to bring him to an urgent care to have the lab drawn, since he does not have a primary care provider. - Vital Signs Vital signs: Temp Pulse Resp BP Pulse Ox 99.5 F 102 H 19 131/86 H 96 10/06/18 04:50 10/06/18 04:50 10/06/18 04:50 10/06/18 04:50 10/06/18 04:50 Discharge - Discharge Clinical Impression: Flu-like symptoms, Cough Condition: Stable Disposition: HOME, SELF-CARE Additional Instructions: You were seen today in the emergency department for flulike symptoms and follow- up for pneumonia. You are on the right medications for the pneumonia. Please continue taking the medication you are prescribed. You were also diagnosed with the flu last visit. The flu may last 7-10 days. You have been given Zofran, antinausea medication he can take every 4-6 hours as needed for nausea and vomiting. Please make sure to stay well-hydrated. You have chosen to not be checked for arsenic poisoning. Please get out of the living situation you are in if you feel unsafe. If you pass out, become unresponsive, or have any symptoms that are worrisome to you, please return to the emergency department. Forms: Return to Work
[2018-10-06] MEDS ORDERED: ONDANSETRON ODT 4 MG TAB (6 TAB/ER DISP) PO PRN (04:28)
[2018-10-06] MEDS ORDERED: ONDANSETRON 4 MG TAB.RAPDIS PO ONE (04:28)
[2018-10-06 05:01] VITALS: BP 131/86
== END 2018-10-06 04:59 | disposition home or self-care (01) ==
LOC: ER 03:31
DX: J18.9 Pneumonia, unspecified organism (principal); E86.0 Dehydration; R05 Cough; R11.2 Nausea with vomiting, unspecified; I10 Essential (primary) hypertension; F17.200 Nicotine dependence, unspecified, uncomplicated; Z77.010 Contact with and (suspected) exposure to arsenic
CPT/HCPCS: 99283; S0119

== ENCOUNTER 2019-06-18 19:27 | Emergency (ER) | payer SELFPAY ==
--- NOTE | 2019-06-18 22:16 | ER Document Report ---
ED Medical Screen (RME) - General Chief Complaint: Chest Congestion Stated Complaint: COLD SYMPTOMS Time Seen by Provider: 06/18/19 22:14 Mode of Arrival: Ambulatory Information source: Patient Notes: 39-year-old male presents to ED for cough cold congestion chest pain. He states he had similar symptoms a year ago ended up with pneumonia. States he had a temperature of 101.3 yesterday. Patient is alert oriented respirations are nonlabored lungs are clear to auscultation. Will get blood and chest x-ray. Patient states she smokes 1/2 pack a day. I have greeted and performed a rapid initial assessment of this patient. A comprehensive ED assessment and evaluation of the patient, analysis of test results and completion of medical decision making process will be conducted by an additional ED providers. TRAVEL OUTSIDE OF THE [place] IN LAST 30 DAYS: No - Related Data Allergies/Adverse Reactions: No Known Allergies Allergy (Verified 08/14/17 23:32) Home Medications: iron supplement. B12 Past Medical History - Social History Chew tobacco use (# tins/day): No Frequency of alcohol use: None Drug Abuse: None - Past Medical History Cardiac Medical History: Reports: Hx Hypertension Renal/ Medical History: Reports: Hx Kidney Stones. Denies: Hx Peritoneal Dialysis Past Surgical History: Reports: Hx Herniorrhaphy, Hx Umbilical Hernia - Immunizations Hx Diphtheria, Pertussis, Tetanus Vaccination: Yes - 5 yrs Physical Exam - Vital signs Vitals: Temp Pulse Resp BP Pulse Ox 97.7 F 86 16 132/89 H 100 06/18/19 19:31 06/18/19 19:31 06/18/19 19:31 06/18/19 19:31 06/18/19 19:31 Course - Vital Signs Vital signs: Temp Pulse Resp BP Pulse Ox 97.7 F 86 16 132/89 H 100 06/18/19 19:31 06/18/19 19:31 06/18/19 19:31 06/18/19 19:31 06/18/19 19:31
--- NOTE | 2019-06-18 23:13 | RADIOLOGY REPORT (SQ) ---
EXAM DESCRIPTION: [facility]: XR CHEST 2 VIEWS Views: 2 CLINICAL HISTORY: 39 years Male, cough congestion COMPARISON: 09/28/2018 FINDINGS: The lungs are clear. No pneumothorax or significant pleural effusion. Cardiomediastinal silhouette is within normal limits. Bony structures are unremarkable for age. IMPRESSION: 1. No acute cardiothoracic abnormality.
[2019-06-18 23:43] LABS: ABSOLUTE EOSINOPHILS # (AUTO) 0.2 10^3/uL (0.0-0.6); ABSOLUTE LYMPHOCYTES (AUTO) 1.9 10^3/uL (0.5-4.7); ABSOLUTE MONOCYTES (AUTO) 0.3 10^3/uL (0.1-1.4); ABSOLUTE NEUT (AUTO) 3.1 10^3/uL (1.7-8.2); BASOPHILS % (AUTO) 0.7 % (0-2); EOSINOPHILS % (AUTO) 3.2 % (0-6); HEMATOCRIT 41.9 % (37.9-51.0); HEMOGLOBIN 14.1 g/dL (13.5-17.0); LYMPHOCYTES % (AUTO) 34.3 % (13-45); MEAN CORPUSCULAR HEMOGLOBIN 28.8 pg (27.0-33.4); MEAN CORPUSCULAR HGB CONC 33.5 g/dL (32.0-36.0); MEAN CORPUSCULAR VOLUME 86 fl (80-97); MONOCYTES % (AUTO) 5.4 % (3-13); PLATELET COUNT 182 10^3/uL (150-450); RED BLOOD COUNT 4.88 10^6/uL (4.35-5.55); SEGMENTED NEUTROPHILS % (AUTO) 56.4 % (42-78); TOTAL CELLS COUNTED % (AUTO) 100 %; WHITE BLOOD COUNT 5.6 10^3/uL (4.0-10.5)
[2019-06-19 00:04] LABS: ALBUMIN 4.2 g/dL (3.5-5.0); ALKALINE PHOSPHATASE 91 U/L (38-126); ANION GAP 9 (5-19); ASPARTATE AMINO TRANSFERASE 36 U/L (17-59); BILIRUBIN,DIRECT 0.1 mg/dL (0.0-0.4); BILIRUBIN,TOTAL 0.5 mg/dL (0.2-1.3); BLOOD UREA NITROGEN 13 mg/dL (7-20); CALCIUM 9.8 mg/dL (8.4-10.2); CARBON DIOXIDE 29 mmol/L (22-30); CHLORIDE 101 mmol/L (98-107); CREATINE KINASE 77 U/L (55-170); GLUCOSE 108 mg/dL (75-110); POTASSIUM 4.1 mmol/L (3.6-5.0); TOTAL PROTEIN 7.3 g/dL (6.3-8.2)
[2019-06-19 00:14] LABS: CREATINE KINASE MB 1.29 ng/mL (<4.55)
[2019-06-19 00:15] LABS: TROPONIN I < 0.012 ng/mL
[2019-06-19] MEDS ORDERED: ALBUTEROL SULFATE HFA (90 MCG/PUFF) 200 PUFF/8.5 GM MDI IH ONE (00:50)
[2019-06-19] MEDS ORDERED: IBUPROFEN 600 MG TABLET PO ONE (00:51)
[2019-06-19] MEDS ORDERED: ACETAMINOPHEN 325 MG TABLET PO ONE (00:51)
--- NOTE | 2019-06-19 00:56 | ER Document Report ---
ED General - General Chief Complaint: Chest Congestion Stated Complaint: COLD SYMPTOMS Time Seen by Provider: 06/18/19 22:14 Primary Care Provider: [facility] [Provider Group] - Follow up as needed [facility] [Provider Group] - Follow up as needed Mode of Arrival: Ambulatory Notes: Patient is a 39-year-old male presents emergency department with a chief complaint of a fever. At home his max temp was 101.3. He took some ibuprofen and Tylenol. Patient has a history of pneumonia that was diagnosed last year and he was hospitalized at [facility]. He wants to make sure that this is not pneumonia again. Patient denies any cough, rhinorrhea, or any other symptoms at this time. TRAVEL OUTSIDE OF THE [place] IN LAST 30 DAYS: No - Related Data Allergies/Adverse Reactions: No Known Allergies Allergy (Verified 08/14/17 23:32) Home Medications: iron supplement. B12 Past Medical History - General Information source: Patient - Social History Smoking Status: Current Every Day Smoker Chew tobacco use (# tins/day): No Frequency of alcohol use: None Drug Abuse: None Family History: Reviewed & Not Pertinent, CVA, DM, Malignancy Patient has suicidal ideation: No Patient has homicidal ideation: No - Past Medical History Cardiac Medical History: Reports: Hx Hypertension Renal/ Medical History: Reports: Hx Kidney Stones. Denies: Hx Peritoneal Dial ysis Past Surgical History: Reports: Hx Herniorrhaphy, Hx Umbilical Hernia - Immunizations Hx Diphtheria, Pertussis, Tetanus Vaccination: Yes - 5 yrs Review of Systems - Review of Systems Notes: REVIEW OF SYSTEMS: CONSTITUTIONAL : See HPI. EENT: Denies eye, ear, throat, or mouth pain, discharge, or symptoms. Denies nasal or sinus congestion. CARDIOVASCULAR: Denies chest pain. RESPIRATORY: Denies shortness of breath, cough, congestion, difficulty breathing, or wheezing. GASTROINTESTINAL: Denies nausea, vomiting, and diarrhea. Denies abdominal pain. Denies constipation. GENITOURINARY: Denies difficulty urinating, burning, blood in urine, urgency or frequency. MUSCULOSKELETAL: Denies neck and back pain. Denies joint pain or swelling. SKIN: Denies rash, itchiness, or lesions HEMATOLOGIC : Denies easy bruising or bleeding. LYMPHATIC: Denies swollen, painful, enlarged glands. NEUROLOGICAL: Denies no numbness or tingling denies weakness. Denies headache. Denies altered mental status. Denies alteration in speech. PSYCHIATRIC: Denies stress, anxiety, alteration in sleep patterns, or depression. All other systems reviewed and negative. Physical Exam - Vital signs Vitals: Temp Pulse Resp BP Pulse Ox 97.7 F 86 16 132/89 H 100 06/18/19 19:31 06/18/19 19:31 06/18/19 19:31 06/18/19 19:31 06/18/19 19:31 - Notes Notes: PHYSICAL EXAMINATION: GENERAL: Appears well, healthy, well-nourished, no acute distress. HEAD: Normocephalic, atraumatic. EYES: PERRL, conjunctiva normal, all extraocular movements intact, sclera nonicteric ENT: Moist mucous membranes. Bilateral cerumen impaction. NECK: Supple, no noticeable swelling, redness, rash. Normal range of motion. LUNGS: Equal breath sounds bilaterally and clear to auscultation. No wheezes rales or rhonchi. CARDIOVASCULAR: S1-S2, regular rate, regular rhythm. Radial pulses 2+, normal. ABDOMEN: Normoactive bowel sounds. Soft, nontender, no guarding, no rebound tenderness, and no masses palpated. EXTREMITIES: Normal strength and range of motion, no pitting or edema. No cyanosis. NEUROLOGICAL: Moves all extremities upon command. Strength 5/5 in all extremities. PSYCH: Normal mood, normal affect. SKIN: Warm, dry. No rash, lesions, ulcerations noted. Normal skin turgor. Course - Re-evaluation Re-evalutation: 06/19/19 02:15 Patient's influenza screen is negative at this time. Chest x-ray and labs ordered in triage are negative at this time. I have advised the patient to continue to take ibuprofen and Tylenol for pain relief. He is in agreement with this plan. Follow-up precautions were given. Verbal discharge instructions were given to the patient. They verbalized understanding. They are stable for discharge. - Vital Signs Vital signs: Temp Pulse Resp BP Pulse Ox 97.8 F 88 16 138/88 H 100 06/19/19 02:04 06/19/19 02:04 06/19/19 02:04 06/19/19 02:04 06/19/19 02:04 - Laboratory Result Diagrams: 06/18/19 23:25 06/18/19 23:25 Discharge - Discharge Clinical Impression: Fever Condition: Stable Disposition: HOME, SELF-CARE Additional Instructions: You are seen today in the emergency department for fever. Your flu screen is negative. Your labs and x-ray were normal. Please continue to take Tylenol 1000 mg and ibuprofen 600 mg every 6 hours for your fever. Please follow-up with 1 of the clinics below. Please stop smoking. Forms: Return to Work Referrals: [facility] [Provider Group] - Follow up as needed [facility] [Provider Group] - Follow up as needed
[2019-06-19 02:03] LABS: A TYPE INFLUENZA AG NEGATIVE (NEGATIVE); B INFLUENZA AG NEGATIVE (NEGATIVE)
[2019-06-19 02:05] VITALS: BP 138/88
== END 2019-06-19 02:05 | disposition home or self-care (01) ==
LOC: ER 19:27
DX: R50.9 Fever, unspecified (principal); R68.89 Other general symptoms and signs; F17.200 Nicotine dependence, unspecified, uncomplicated; I10 Essential (primary) hypertension; Z87.442 Personal history of urinary calculi
CPT/HCPCS: 36415; 82553; 82550; 85025; 80053; 84484; 87804; 71046; J3490; 99283

== ENCOUNTER 2020-05-20 12:54 | Emergency (ER) | payer SELFPAY ==
--- NOTE | 2020-05-20 13:38 | ER Document Report ---
ED Medical Screen (RME) - General Chief Complaint: Knee Injury Stated Complaint: RIGHT KNEE SPIDER BITE Time Seen by Provider: 05/20/20 13:36 Mode of Arrival: Ambulatory Information source: Patient Notes: 40-year-old male presented to ED for complaint of pain to the right knee. He states he thinks a spider bit him he states he did not see weightbearing. He states he was 2 days ago. He does have a red swollen right knee. There is obvious areas where something did bite him and either scratched or popped. He states his did pop him and then tried to clean them. The whole knee is s wollen and red and tender to touch. It is warm to palpation. We will get blood urine and an x-ray and have him seen. States his pain level is a 4/5 he states the pain is very sharp. I have greeted and performed a rapid initial assessment of this patient. A comprehensive ED assessment and evaluation of the patient, analysis of test results and completion of medical decision making process will be conducted by an additional ED providers. TRAVEL OUTSIDE OF THE [place] IN LAST 30 DAYS: No - Related Data Allergies/Adverse Reactions: No Known Allergies Allergy (Verified 08/14/17 23:32) Past Medical History - Past Medical History Cardiac Medical History: Reports: Hx Hypertension Renal/ Medical History: Reports: Hx Kidney Stones. Denies: Hx Peritoneal Dialysis Past Surgical History: Reports: Hx Herniorrhaphy, Hx Umbilical Hernia - Immunizations Hx Diphtheria, Pertussis, Tetanus Vaccination: Yes - 5 yrs Physical Exam - Vital signs Vitals: Temp Pulse Resp BP Pulse Ox 98.0 F 97 16 160/70 H 100 05/20/20 12:59 05/20/20 12:59 05/20/20 12:59 05/20/20 12:59 05/20/20 12:59 Course - Vital Signs Vital signs: Temp Pulse Resp BP Pulse Ox 98.0 F 97 16 160/70 H 100 05/20/20 12:59 05/20/20 12:59 05/20/20 12:59 05/20/20 12:59 05/20/20 12:59
[2020-05-20] MEDS ORDERED: ACETAMINOPHEN 325 MG TABLET PO ONE (13:40)
[2020-05-20 14:21] LABS: ABSOLUTE EOSINOPHILS # (AUTO) 0.1 10^3/uL (0.0-0.6); ABSOLUTE LYMPHOCYTES (AUTO) 1.9 10^3/uL (0.5-4.7); ABSOLUTE MONOCYTES (AUTO) 0.5 10^3/uL (0.1-1.4); ABSOLUTE NEUT (AUTO) 4.7 10^3/uL (1.7-8.2); BASOPHILS % (AUTO) 0.7 % (0-2); EOSINOPHILS % (AUTO) 1.4 % (0-6); HEMATOCRIT 36.5 % (37.9-51.0); HEMOGLOBIN 12.4 g/dL (13.5-17.0); LYMPHOCYTES % (AUTO) 26.3 % (13-45); MEAN CORPUSCULAR HEMOGLOBIN 28.1 pg (27.0-33.4); MEAN CORPUSCULAR HGB CONC 33.9 g/dL (32.0-36.0); MEAN CORPUSCULAR VOLUME 83 fl (80-97); MONOCYTES % (AUTO) 6.5 % (3-13); PLATELET COUNT 184 10^3/uL (150-450); RED CELL DISTRIBUTION WIDTH 13.7 % (11.5-14.0); SEGMENTED NEUTROPHILS % (AUTO) 65.1 % (42-78); TOTAL CELLS COUNTED % (AUTO) 100 %; WHITE BLOOD COUNT 7.3 10^3/uL (4.0-10.5)
[2020-05-20 14:49] LABS: ALBUMIN 3.8 g/dL (3.5-5.0); ALKALINE PHOSPHATASE 114 U/L (38-126); ANION GAP 6 (5-19); ASPARTATE AMINO TRANSFERASE 27 U/L (17-59); BILIRUBIN,DIRECT 0.3 mg/dL (0.0-0.4); BILIRUBIN,TOTAL 0.5 mg/dL (0.2-1.3); BLOOD UREA NITROGEN 13 mg/dL (7-20); CARBON DIOXIDE 33 mmol/L (22-30); CHLORIDE 101 mmol/L (98-107); GLUCOSE 90 mg/dL (75-110); TOTAL PROTEIN 6.8 g/dL (6.3-8.2)
--- NOTE | 2020-05-20 14:51 | RADIOLOGY REPORT (SQ) ---
EXAM DESCRIPTION: KNEE RIGHT 4 VIEWS IMAGES COMPLETED DATE/TIME: 05/20/2020 2:07 pm REASON FOR STUDY: Erythematous swollen painful right knee COMPARISON: None. NUMBER OF VIEWS: Four views. TECHNIQUE: AP, lateral, and both oblique radiographic images acquired of the right knee. LIMITATIONS: None. FINDINGS: MINERALIZATION: Normal. BONES: No acute fracture or dislocation. No worrisome bone lesions. JOINT: Small joint effusion. SOFT TISSUES: No soft tissue swelling. No radio-opaque foreign body. OTHER: No other significant finding. IMPRESSION: Small joint effusion. No acute osseous findings. TECHNICAL DOCUMENTATION: JOB ID: [id number] 2010 [employer]- All Rights Reserved Reading location - IP/workstation name: [email or web address]
--- NOTE | 2020-05-20 17:42 | ER Document Report ---
ED Extremity Problem, Lower - General Chief Complaint: Insect Bite Stated Complaint: RIGHT KNEE SPIDER BITE Time Seen by Provider: 05/20/20 13:36 Primary Care Provider: [facility] [Provider Group] - Follow up in 3-5 days [facility] [Provider Group] - Follow up in 3-5 days Mode of Arrival: Ambulatory Notes: Patient is a 40-year-old male who presents emergency department with a chief complaint of right knee pain. Patient states that he " thinks that a spider bit him." Patient states that about 2 days ago he had his girlfriend sterilized a sharp object and drained the abscess that was there. He has not been on any antibiotics. States that he is able to move his knee. Denies history of IV drug use. TRAVEL OUTSIDE OF THE [place] IN LAST 30 DAYS: No - Related Data Allergies/Adverse Reactions: No Known Allergies Allergy (Verified 08/14/17 23:32) Home Medications: iron Past Medical History - General Information source: Patient - Social History Smoking Status: Current Every Day Smoker Chew tobacco use (# tins/day): No Frequency of alcohol use: None Drug Abuse: None Family History: Reviewed & Not Pertinent, CVA, DM, Malignancy - Past Medical History Cardiac Medical History: Reports: Hx Hypertension Renal/ Medical History: Reports: Hx Kidney Stones. Denies: Hx Peritoneal Dialysis Past Surgical History: Reports: Hx Herniorrhaphy, Hx Umbilical Hernia - Immunizations Hx Diphtheria, Pertussis, Tetanus Vaccination: Yes - 5 yrs Review of Systems - Review of Systems Notes: REVIEW OF SYSTEMS: CONSTITUTIONAL : Denies recent illness. Denies recent unintentional weight loss. Denies fever, chills, or sweats. EENT: Denies eye, ear, throat, or mouth pain, discharge, or symptoms. Denies nasal or sinus congestion. CARDIOVASCULAR: Denies chest pain. RESPIRATORY: Denies shortness of breath, cough, congestion, difficulty breathing, or wheezing. GASTROINTESTINAL: Denies nausea, vomiting, and diarrhea. Denies abdominal pain. Denies constipation. GENITOURINARY: Denies difficulty urinating, burning, blood in urine, urgency or frequency. MUSCULOSKELETAL: Denies neck and back pain. See HPI. SKIN: Denies rash, itchiness, or lesions HEMATOLOGIC : Denies easy bruising or bleeding. LYMPHATIC: Denies swollen, painful, enlarged glands. NEUROLOGICAL: Denies no numbness or tingling denies weakness. Denies headache. Denies altered mental status. Denies alteration in speech. PSYCHIATRIC: Denies stress, anxiety, alteration in sleep patterns, or depression. All other systems reviewed and negative. Physical Exam - Vital signs Vitals: Temp Pulse Resp BP Pulse Ox 98.0 F 97 16 160/70 H 100 05/20/20 12:59 05/20/20 12:59 05/20/20 12:59 05/20/20 12:59 05/20/20 12:59 - Notes Notes: PHYSICAL EXAMINATION: GENERAL: Appears well, healthy, well-nourished, no acute distress. HEAD: Normocephalic, atraumatic. EYES: PERRL, conjunctiva normal, all extraocular movements intact, sclera nonicteric ENT: Moist mucous membranes. NECK: Supple, no noticeable swelling, redness, rash. Normal range of motion. LUNGS: Equal breath sounds bilaterally and clear to auscultation. No wheezes rales or rhonchi. CARDIOVASCULAR: S1-S2, regular rate, regular rhythm. Radial pulses 2+, normal. ABDOMEN: Normoactive bowel sounds. Soft, nontender, no guarding, no rebound tenderness, and no masses palpated. EXTREMITIES: Normal strength and range of motion, no pitting or edema. No cyanosis. NEUROLOGICAL: Moves all extremities upon command. Strength 5/5 in all extremities. PSYCH: Normal mood, normal affect. SKIN: Warm, dry. Track shea noted to bilateral upper arms. Erythema noted to right knee. 3 small, already popped abscess areas noted to right knee Course - Re-evaluation Re-evalutation: 05/20/20 17:38 X-ray shows a possible joint effusion, this is most likely the patient's edema noted to the area due to the cellulitis around his knee. Patient is able to bend his knee at 90 degrees. I have a low suspicion for a septic joint. CBC is unremarkable. Chemistries are also unremarkable. Since the patient has already drained the abscess, will start the patient on Bactrim and Keflex. Patient denies any IV drug use, but there are track shea up and down both arms. He is in agreement with this plan. Follow-up precautions were given. Verbal discharge instructions were given to the patient. They verbalized understanding. They are stable for discharge. - Vital Signs Vital signs: Temp Pulse Resp BP Pulse Ox 98 F 97 16 160/70 H 100 05/20/20 13:36 05/20/20 12:59 05/20/20 12:59 05/20/20 12:59 05/20/20 12:59 - Laboratory Result Diagrams: 05/20/20 13:47 05/20/20 13:47 Laboratory results interpreted by me: 05/20/20 05/20/20 13:47 13:47 Hgb 12.4 L Hct 36.5 L Carbon Dioxide 33 H Discharge - Discharge Clinical Impression: Abscess Knee pain Qualifiers: Chronicity: acute Laterality: right Qualified Code(s): M25.561 - Pain in right knee Cellulitis Qualifiers: Site of cellulitis: extremity Site of cellulitis of extremity: lower extremity Laterality: right Qualified Code(s): L03.115 - Cellulitis of right lower limb Condition: Stable Disposition: HOME, SELF-CARE Instructions: Cephalexin ([facility]), Trimethoprim-Sulfa ([facility]) Additional Instructions: The rash is likely due to infection of your skin. You need to take the antibiotics as prescribed. Do not stop even if the rash goes away until you have completed all the antibiotics. The area of redness was traced out here in the emergency department with a marking pen. You need to return to emergency department if the redness spreads outside of this area by more than 2 cm in any direction. You should also return if you develop fevers with temperature greater than 101, persistent vomiting, worsening pain, or have any other symptoms that are concerning to you. Prescriptions: Sulfamethoxazole/Trimethoprim [Bactrim Ds Tablet] 1 each PO BID 7 Days #14 tablet Cephalexin Monohydrate [Keflex 500 mg Capsule] 500 mg PO Q6H 5 Days #28 capsule Referrals: [facility] [Provider Group] - Follow up in 3-5 days [facility] [Provider Group] - Follow up in 3-5 days
[2020-05-20 18:06] VITALS: BP 149/89
== END 2020-05-20 18:07 | disposition home or self-care (01) ==
LOC: ER 12:54
DX: T63.301A Toxic effect of unspecified spider venom, accidental (unintentional), initial encounter (principal); L02.415 Cutaneous abscess of right lower limb; L03.115 Cellulitis of right lower limb; F17.200 Nicotine dependence, unspecified, uncomplicated; I10 Essential (primary) hypertension
CPT/HCPCS: 36415; 80053; 85025; 99284